=== PATIENT | female | born 1965 | race Caucasian/White ===

== ENCOUNTER 2019-03-06 10:00 | Day surgery (SDC) | payer OTHER ==
[2019-03-06] MEDS ORDERED: FENTAnyl 50 MCG/ML VIAL ×3 (11:24)
[2019-03-06] MEDS ORDERED: PROPOFOL 40 ML (11:24)
[2019-03-06] MEDS ORDERED: ONDANSETRON 4 MG INJ (12:51)
== END 2019-03-06 13:06 | disposition home or self-care (01) ==
LOC: GIL 10:00
DX: K64.4 Residual hemorrhoidal skin tags (principal); K63.3 Ulcer of intestine
CPT/HCPCS: 45378